=== PATIENT | female | born 1985 | race Two or more races ===

== ENCOUNTER 2017-01-08 18:42 | Emergency (ER) | payer SELFPAY ==
[2017-01-08 20:05] VITALS: BP 110/68
--- NOTE | 2017-01-08 20:28 | ER Document Report ---
HPI - HPI Patient complains to provider of: right eye draining and red, ear fullness Onset: Other - Ear fullness and pain behind her right ear started 3-15 the eye drainage started 3-16. Onset/Duration: Gradual Pain Level: 4 Context: 31-year-old noncontact lens wearer complaining of redness and weakness drainage to her right eye since yesterday. She also started having fullness in blockage to her ears since 315. 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 She wrote on her triage paper that she was having lower abdominal cramping but she just found out since she checked in that she started her period so she isn't worry about the cramping No fever. Associated Symptoms: None Exacerbated by: Denies Relieved by: Denies Similar symptoms previously: No Recently seen / treated by doctor: No - ROS ROS below otherwise negative: Yes Systems Reviewed and Negative: Yes All other systems reviewed and negative - CONSTITUTIONAL Constitutional: DENIES: Fever, Chills - EENT EENT: REPORTS: Ear Pain - RESPIRATORY Respiratory: DENIES: Trouble Breathing, Coughing - REPRODUCTIVE Reproductive: REPORTS: : - DERM Skin Color: Normal Skin Problems: None - NURSING COMMENTS Comment: pt presents to the ED with c/o eye drainage and ear pain onset 2 days ago Past Medical History - General Information source: Patient - Social History Smoking Status: Unknown if Ever Smoked Frequency of alcohol use: None Drug Abuse: None Lives with: Family Family History: Reviewed & Not Pertinent Pulmonary Medical History: Reports: Hx Asthma, Hx Bronchitis, Hx Pneumonia Surgical Hx: Negative - Immunizations Hx Diphtheria, Pertussis, Tetanus Vaccination: Yes Vertical Provider Document - CONSTITUTIONAL Agree With Documented VS: Yes Exam Limitations: No Limitations - INFECTION CONTROL TRAVEL OUTSIDE OF THE [place] IN LAST 30 DAYS: No - HEENT HEENT: Normocephalic, PERRLA. negative: Pharyngeal Erythema, Tympanic Membrane Red, Tympanic Membrane Bulging Notes: no preauricular nodes, no flourascein stain uptake, no FB with lid flipped, no ulcer - NECK Neck: Supple. negative: Lymphadenopathy-Left, Lymphadenopathy-Right - RESPIRATORY Respiratory: Breath Sounds Normal, No Respiratory Distress O2 Sat by Pulse Oximetry: 100 - CARDIOVASCULAR Cardiovascular: Regular Rate, Regular Rhythm - GI/ABDOMEN Gastrointestinal: Abdomen Soft, Abdomen Non-Tender, No Organomegaly - MUSCULOSKELETAL/EXTREMETIES Musculoskeletal/Extremeties: MAEW, FROM - NEURO Level of Consciousness: Awake, Alert Motor/Sensory: No Motor Deficit, No Sensory Deficit - DERM Integumentary: Warm, Dry, No Rash Course - Vital Signs Vital signs: Temp Pulse Resp BP Pulse Ox 97.9 F 74 16 110/68 100 01/08/17 20:05 01/08/17 20:05 01/08/17 20:05 01/08/17 20:05 01/08/17 20:05 Discharge - Discharge Clinical Impression: Conjunctivitis, right eye Qualifiers: Conjunctivitis type: acute Acute conjunctivitis type: unspecified Qualified Code(s): H10.31 - Unspecified acute conjunctivitis, right eye Condition: Good Disposition: HOME, SELF-CARE Instructions: Conjunctivitis (OM), Sulfa Medications (OM), Eyedrop Use ([facility]) Additional Instructions: to er if worse see the eye doctor on wednesday if persists don't rub eye or patch rub Please complete the patient satisfaction survey if you get one, and return it.. If you do not receive a survey, then you can go to the [facility] website, [email or web address] and place your comments about your very good care. Thank you very much. It was a pleasure being your medical provider today. Prescriptions: Sulfacetamide Sodium [Bleph-10] 2 drop OD Q4H #5 ml Referrals: KEAGAN MONROE MD [ACTIVE STAFF] - Follow up as needed
== END 2017-01-08 21:00 | disposition home or self-care (01) ==
LOC: ER 18:42
DX: H10.31 Unspecified acute conjunctivitis, right eye (principal); H92.09 Otalgia, unspecified ear; J45.909 Unspecified asthma, uncomplicated
CPT/HCPCS: 99282

== ENCOUNTER 2017-01-11 18:38 | Emergency (ER) | payer SELFPAY ==
--- NOTE | 2017-01-11 20:00 | ER Document Report ---
ED Medical Screen (RME) - General Stated Complaint: BLOOD IN STOOL, ABDOMINAL PAIN Time seen by provider: 19:58 Mode of Arrival: Ambulatory Information source: Patient Notes: 31-year-old female presents to ED for right of blood and clots with stool and pain in her lower abdomen since this a.m. As menstrual period was started 3 days ago and she is on it right now. She came in Wednesday for pinkeye. I have greeted and performed a rapid initial assessment of this patient. A comprehensive ED assessment and evaluation of the patient, analysis of test results and completion of medical decision making process will be conducted by an additional ED providers. TRAVEL OUTSIDE OF THE [place] IN LAST 30 DAYS: No - Related Data Allergies/Adverse Reactions: No Known Allergies Allergy (Verified 12/10/14 21:16) Past Medical History Pulmonary Medical History: Reports: Hx Asthma, Hx Bronchitis, Hx Pneumonia - Immunizations Hx Diphtheria, Pertussis, Tetanus Vaccination: Yes Physical Exam - Vital signs Vitals: Temp Pulse Resp BP Pulse Ox 98.3 F 53 L 16 121/77 100 01/11/17 19:52 01/11/17 19:52 01/11/17 19:52 01/11/17 19:52 01/11/17 19:52 Course - Vital Signs Vital signs: Temp Pulse Resp BP Pulse Ox 98.3 F 53 L 16 121/77 100 01/11/17 19:52 01/11/17 19:52 01/11/17 19:52 01/11/17 19:52 01/11/17 19:52
[2017-01-11 21:21] LABS: ABSOLUTE BASOPHILS # (AUTO) 0.1 10^3/uL (0.0-0.2); ABSOLUTE EOSINOPHILS # (AUTO) 0.6 10^3/uL (0.0-0.6); ABSOLUTE LYMPHOCYTES (AUTO) 2.8 10^3/uL (0.5-4.7); ABSOLUTE MONOCYTES (AUTO) 0.7 10^3/uL (0.1-1.4); ABSOLUTE NEUT (AUTO) 2.9 10^3/uL (1.7-8.2); BASOPHILS % (AUTO) 0.8 % (0-2); EOSINOPHILS % (AUTO) 8.9 % (0-6); HEMATOCRIT 40.3 % (36.0-47.0); HEMOGLOBIN 13.6 g/dL (12.0-15.5); HGB HCT DIFFERENCE 0.5; LYMPHOCYTES % (AUTO) 39.2 % (13-45); MEAN CORPUSCULAR HEMOGLOBIN 30.9 pg (27.0-33.4); MEAN CORPUSCULAR HGB CONC 33.7 g/dL (32.0-36.0); MEAN CORPUSCULAR VOLUME 92 fl (80-97); RED CELL DISTRIBUTION WIDTH 12.9 % (11.5-14.0); SEGMENTED NEUTROPHILS % (AUTO) 41.1 % (42-78); WHITE BLOOD COUNT 7.1 10^3/uL (4.0-10.5)
[2017-01-11 21:28] LABS: APPEARANCE,URINE CLOUDY; BILIRUBIN,URINE NEGATIVE (NEGATIVE); GLUCOSE, URINE NEGATIVE (NEGATIVE); KETONES,URINE NEGATIVE (NEGATIVE); LEUKOCYTE ESTERASE,URINE TRACE (NEGATIVE); NITRITE,URINE NEGATIVE (NEGATIVE); PROTEIN,URINE NEGATIVE (NEGATIVE); URINE SPECIFIC GRAVITY 1.027; UROBILINOGEN,URINE NEGATIVE mg/dL (<2.0)
[2017-01-12 04:20] VITALS: BP 151/72
--- NOTE | 2017-01-12 04:33 | ER Document Report ---
ED General - General Chief Complaint: Bloody Stools Stated Complaint: BLOOD IN STOOL, ABDOMINAL PAIN Mode of Arrival: Ambulatory Information source: Patient TRAVEL OUTSIDE OF THE [place] IN LAST 30 DAYS: No - HPI Notes: Patient presents with report that she had bright red blood clots and a bowel movement earlier this morning and then the second time noticed the same this afternoon. She states she had a minimal abdominal pain earlier that was transient and has denied any abdominal pain since. She reports she is on her menstrual cycle which is normal for her, and she is certain that there is no vaginal bleeding that she had noticed previously with the bowel movement associated bleeding. She reports there was soft brown stool mixed in with a bowel movement. There was no rectal or anal pain. She denies rectal intercourse. She reports no fever or chills she denies any other abnormal bleeding or bruising. No family history of colon cancer. The patient's never had a colonoscopy. No history of diverticular disease. The patient does report a history of hemorrhoids in the past. - Related Data Allergies/Adverse Reactions: No Known Allergies Allergy (Verified 12/10/14 21:16) Past Medical History - General Information source: Patient - Social History Smoking Status: Current Every Day Smoker Chew tobacco use (# tins/day): No Frequency of alcohol use: Rare Drug Abuse: None Family History: Reviewed & Not Pertinent Patient has suicidal ideation: No Patient has homicidal ideation: No Pulmonary Medical History: Reports: Hx Asthma, Hx Bronchitis, Hx Pneumonia Renal/ Medical History: Denies: Hx Peritoneal Dialysis Surgical Hx: Negative - Immunizations Hx Diphtheria, Pertussis, Tetanus Vaccination: Yes Review of Systems - Review of Systems Notes: REVIEW OF SYSTEMS: CONSTITUTIONAL : Denies fever, chills, or sweats. Denies recent illness. EENT: Denies eye, ear, throat, or mouth pain or symptoms. Denies nasal or sinus congestion or discharge. Denies throat, tongue, or mouth swelling or difficulty swallowing. CARDIOVASCULAR: Denies chest pain. Denies palpitations or racing or irregular heart beat. Denies ankle edema. RESPIRATORY: Denies cough, cold, or chest congestion. Denies shortness of breath, difficulty breathing, or wheezing. GASTROINTESTINAL: Denies current abdominal pain or distention. Denies nausea, vomiting, or diarrhea. Denies blood in vomitus. Denies black, tarry stools. Denies constipation. GENITOURINARY: Denies difficulty urinating, painful urination, burning, frequency, blood in urine, or discharge. FEMALE GENITOURINARY: Denies vaginal bleeding, heavy or abnormal periods, irregular periods. Denies vaginal discharge or odor. MUSCULOSKELETAL: Denies back or neck pain or stiffness. Denies joint pain or swelling. SKIN: Denies rash, lesions or sores. HEMATOLOGIC : Denies easy bruising or bleeding. LYMPHATIC: Denies swollen, enlarged glands. NEUROLOGICAL: Denies confusion or altered mental status. Denies passing out or loss of consciousness. Denies dizziness or lightheadedness. Denies headache. Denies weakness or paralysis or loss of use of either side. Denies problems with gait or speech. Denies sensory loss, numbness, or tingling. Denies seizures. PSYCHIATRIC: Denies anxiety or stress. Denies depression, suicidal ideation, or homicidal ideation. ALL OTHER SYSTEMS REVIEWED AND NEGATIVE. Dictation was performed using [employer] voice recognition software Physical Exam - Vital signs Vitals: Temp Pulse Resp BP Pulse Ox 98.3 F 53 L 16 121/77 100 01/11/17 19:52 01/11/17 19:52 01/11/17 19:52 01/11/17 19:52 01/11/17 19:52 - Notes Notes: PHYSICAL EXAMINATION: GENERAL: Well-appearing, well-nourished and in no acute distress. HEAD: Atraumatic, normocephalic. EYES: Pupils equal round and reactive to light, extraocular movements intact, conjunctiva are normal. ENT: Nares patent, oropharynx clear without exudates. Moist mucous membranes. NECK: Normal range of motion, supple without lymphadenopathy LUNGS: Breath sounds clear to auscultation bilaterally and equal. No wheezes rales or rhonchi. HEART: Regular rate and rhythm without murmurs ABDOMEN: Soft, nontender, nondistended abdomen. No guarding, no rebound. No masses appreciated. Female : deferred Rectal exam: No evidence for hemorrhoids or bleeding or fissure. Rectal exam was guaiac negative. There was a question of some internal hemorrhoids on exam which was nontender. Musculoskeletal: Normal range of motion, no pitting or edema. No cyanosis. NEUROLOGICAL: Cranial nerves grossly intact. Normal speech, normal gait. Normal sensory, motor exams PSYCH: Normal mood, normal affect. SKIN: Warm, Dry, normal turgor, no rashes or lesions noted. Course - Re-evaluation Re-evalutation: 01/12/17 05:18 No abdominal pain on repeat exam. Patient experienced no further bleeding. No evidence for anemia or renal insufficiency or significant electrolyte imbalance or acute process. Patient is advised that she needs to follow up for colonoscopy and further evaluation. Patient was heme-negative on rectal exam. Question painless diverticular bleed versus hemorrhoidal bleed. - Vital Signs Vital signs: Temp Pulse Resp BP Pulse Ox 98.3 F 57 L 14 151/72 H 100 01/11/17 19:52 01/12/17 04:06 01/12/17 04:06 01/12/17 04:06 01/12/17 04:06 - Laboratory Result Diagrams: 01/11/17 21:12 Laboratory results interpreted by me: 01/11/17 01/11/17 21:12 21:12 Seg Neutrophils % 41.1 L Eosinophils % 8.9 H Ur Leukocyte Esterase TRACE H Urine Ascorbic Acid 20 H Discharge - Discharge Clinical Impression: GI bleed Qualifiers: GI bleed type/associated pathology: unspecified gastrointestinal hemorrhage type Qualified Code(s): K92.2 - Gastrointestinal hemorrhage, unspecified Condition: Stable Disposition: HOME, SELF-CARE Additional Instructions: Follow-up with local surgeon for colonoscopy to evaluate for cause of lower gastrointestinal bleed. Return to the emergency Department case abdominal pain, severe bleeding or any fever. Forms: Return to Work Referrals: CHRISTINA DIAZ MD [SURFACER] - Follow up as needed CHRISSY DYE MD [ACTIVE STAFF] - Follow up as needed
== END 2017-01-12 04:43 | disposition home or self-care (01) ==
LOC: ER 18:38
DX: K92.2 Gastrointestinal hemorrhage, unspecified (principal); F17.200 Nicotine dependence, unspecified, uncomplicated; J45.909 Unspecified asthma, uncomplicated
CPT/HCPCS: 36415; 81001; 82272; 85025; 99285

== ENCOUNTER 2017-01-19 12:33 | Emergency (ER) | payer OTHER ==
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
[2017-01-19] MEDS ORDERED: IBUPROFEN 800 MG TABLET PO ONE (14:53)
[2017-01-19] MEDS ORDERED: CYCLOBENZAPRINE HCL 10 MG TABLET PO ONE (14:53)
[2017-01-19] MEDS ORDERED: HYDROCODONE/ACETAMINOPHEN 5-325 MG TABLET PO ONE (14:54)
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
[2017-01-19 15:52] VITALS: BP 122/78
== END 2017-01-19 15:39 | disposition home or self-care (01) ==
LOC: ER 12:33
DX: T14.8 Other injury of unspecified body region (principal); M54.2 Cervicalgia; R52 Pain, unspecified; M54.9 Dorsalgia, unspecified; V87.7XXA Person injured in collision between other specified motor vehicles (traffic), initial encounter; F17.210 Nicotine dependence, cigarettes, uncomplicated
CPT/HCPCS: 99283